=== PATIENT | male | born 1980 ===

== ENCOUNTER 2018-12-07 09:51 | Inpatient (IN) | payer OTHER ==
[~2018-12-07] VITALS: Ht 172.7 cm; Wt 99.0 kg
[2018-12-07] MEDS ORDERED: SERT50TA12 PO (10:26)
[2018-12-07 10:58] LABS: BASOPHILS % (AUTO) 0.4 % (0.0-2.0); EOSINOPHILS % (AUTO) 0.2 % (1.0-6.0); HEMOGLOBIN 16.9 g/dL (13.5-17.5); LYMPHOCYTES # (AUTO) 0.6 K/uL (1.0-4.8); LYMPHOCYTES % (AUTO) 5.7 % (22.0-44.0); MEAN CORPUSCULAR HEMOGLOBIN 33.6 pg (26.0-34.0); MEAN CORPUSCULAR HGB CONC 34.4 G/dL (31.0-37.0); MEAN CORPUSCULAR VOLUME 98 fL (80-100); MONOCYTES # (AUTO) 0.6 K/uL (0.1-1.0); MONOCYTES % (AUTO) 6.1 % (2.0-9.0); NEUTROPHILS # (AUTO) 9.2 K/uL (1.8-7.7); PLATELET COUNT (AUTO) 114 K/uL (150-450); RED BLOOD CELL COUNT(AUTO) 5.02 MIL/uL (4.50-5.90); RED CELL DISTRIBUTION WIDTH 14.1 % (11.5-14.5)
[2018-12-07 11:00] LABS: NEUTROPHILS % (AUTO) 87.6 % (40.0-70.0)
[2018-12-07] MEDS ORDERED: SODIUM CHLORIDE 0.9% 1,000 ML IV ONE (11:00)
[2018-12-07] MEDS ORDERED: LORazepam 2 MG/ML VIAL IVP ONE (11:00)
[2018-12-07] MEDS ORDERED: MAGNESIUM SULFATE 2 GM, MVI, ADULT NO.1 WITH VIT K 10 ML, THIAMINE HCL 100 MG, FOLIC AC... IV ONE ×5 (11:00)
[2018-12-07 11:05] LABS: ANION GAP 13 mmol/L (8-16); CALCIUM, TOTAL 9.3 mg/dL (8.8-10.5); CARBON DIOXIDE 21 mmol/L (22-29); CHLORIDE 93 mmol/L (98-107); CREATININE 0.67 mg/dL (0.60-1.30); GLOMERULAR FILTR. RATE CALC > 60 mL/min (>60); GLUCOSE,RANDOM 108 mg/dL (70-110); SODIUM SERUM 127 mmol/L (136-145); UREA NITROGEN, BLOOD 5 mg/dL (7-18)
[2018-12-07 11:11] LABS: ALANINE AMINOTRANSFERASE 93 U/L (12-78); ALBUMIN 4.4 g/dL (3.4-5.0); ALKALINE PHOSPHATASE 151 U/L (46-116); ASPARTATE AMINOTRANSFERASE 174 U/L (15-37); BILIRUBIN,TOTAL 1.5 mg/dL (0.1-1.0); LIPASE 322 U/L (73-393); TOTAL PROTEIN, SERUM 8.9 g/dL (6.4-8.2)
[2018-12-07 12:49] LABS: AMPHET/METH SCREEN,URINE NEGATIVE (NEGATIVE); BARBITURATE SCREEN, URINE NEGATIVE (NEGATIVE); BENZODIAZEPINES SCREEN,URINE NEGATIVE (NEGATIVE); CANNABINOID SCREEN,URINE POSITIVE (NEGATIVE); COCAINE SCREEN,URINE NEGATIVE (NEGATIVE); METHADONE SCREEN, URINE NEGATIVE (NEGATIVE); OPIATE SCREEN,URINE NEGATIVE (NEGATIVE)
[2018-12-07 12:50] LABS: PHENCYCLIDINE SCREEN,URINE NEGATIVE (NEGATIVE)
[2018-12-07] MEDS ORDERED: BISACODYL 10 MG RECTAL RECTAL SUPPOSITORY PR PRN (13:00)
[2018-12-07] MEDS ORDERED: LORazepam 2 MG/ML VIAL IVP PRN (13:00)
[2018-12-07] MEDS ORDERED: ALBUTEROL SULFATE 2.5 MG/0.5 ML NEB SOLUTION NEB PRN (13:00)
[2018-12-07] MEDS ORDERED: MORPHINE SULFATE 2 MG/ML SYRINGE IVP PRN (13:00)
[2018-12-07] MEDS ORDERED: HYDROCODONE/ACETAMINOPHEN 5-325 MG TABLET PO PRN (13:00)
[2018-12-07] MEDS ORDERED: ONDANSETRON HCL 4 MG/2 ML VIAL IVP PRN (13:00)
[2018-12-07] MEDS ORDERED: ACETAMINOPHEN 325 MG TABLET PO PRN (13:00)
[2018-12-07] MEDS ORDERED: MAGNESIUM HYDROXIDE SUSPENSION 30 ML UDCUP PO PRN (13:00)
[2018-12-07] MEDS ORDERED: IPRATROPIUM BROMIDE 0.5 MG/2.5 ML NEB SOLUTION NEB PRN (13:00)
[2018-12-07] MEDS ORDERED: ZOLPIDEM TARTRATE 5 MG TABLET PO PRN (13:00)
[2018-12-07 16:34] VITALS: BP 138/97
[2018-12-07] MEDS: HEPARIN SODIUM,PORCINE 5,000 UNITS/ML VIAL SQ SCH (17:17)
[2018-12-07 20:30] VITALS: BP 143/94
[2018-12-07] MEDS: DOCUSATE SODIUM 100 MG CAPSULE PO SCH (21:03)
[2018-12-07] MEDS: ChlordiazePOXIDE HCL 25 MG CAPSULE PO SCH (21:03)
[2018-12-07] MEDS: SERTRALINE HCL 50 MG TABLET PO SCH (21:05)
[2018-12-07] MEDS: RisperiDONE 0.5 MG TABLET PO SCH (21:05)
[2018-12-07 23:40] VITALS: BP 132/90
[2018-12-08] VITALS (13 sets, daily range): BP systolic 118–136; BP diastolic 74–93
[2018-12-08] MEDS: HEPARIN SODIUM,PORCINE 5,000 UNITS/ML VIAL SQ SCH ×4 (00:13→23:49)
[2018-12-08] MEDS: ChlordiazePOXIDE HCL 25 MG CAPSULE PO SCH ×4 (00:13→18:31)
[2018-12-08] MEDS: FOLIC ACID 1 MG TABLET PO SCH (08:35)
[2018-12-08] MEDS: MULTIVITAMINS, THERAPEUTIC TABLET PO SCH (08:35)
[2018-12-08] MEDS: RisperiDONE 0.5 MG TABLET PO SCH ×2 (08:35→19:40)
[2018-12-08] MEDS: DOCUSATE SODIUM 100 MG CAPSULE PO SCH ×2 (08:36→19:39)
[2018-12-08] MEDS: THIAMINE HCL 100 MG TABLET PO SCH (08:36)
[2018-12-08 16:08] LABS: BASOPHILS % (AUTO) 1.2 % (0.0-2.0); EOSINOPHILS % (AUTO) 3.7 % (1.0-6.0); HEMATOCRIT 50.2 % (41-53); HEMOGLOBIN 16.6 g/dL (13.5-17.5); LYMPHOCYTES # (AUTO) 0.6 K/uL (1.0-4.8); LYMPHOCYTES % (AUTO) 10.1 % (22.0-44.0); MEAN CORPUSCULAR HEMOGLOBIN 33.2 pg (26.0-34.0); MEAN CORPUSCULAR HGB CONC 33.1 G/dL (31.0-37.0); MEAN CORPUSCULAR VOLUME 100 fL (80-100); MONOCYTES # (AUTO) 0.4 K/uL (0.1-1.0); MONOCYTES % (AUTO) 7.2 % (2.0-9.0); NEUTROPHILS # (AUTO) 4.8 K/uL (1.8-7.7); NEUTROPHILS % (AUTO) 77.8 % (40.0-70.0); RED BLOOD CELL COUNT(AUTO) 5.01 MIL/uL (4.50-5.90); RED CELL DISTRIBUTION WIDTH 14.3 % (11.5-14.5)
[2018-12-08 16:21] LABS: ANION GAP 11 mmol/L (8-16); CALCIUM, TOTAL 9.6 mg/dL (8.8-10.5); CARBON DIOXIDE 23 mmol/L (22-29); CHLORIDE 99 mmol/L (98-107); CREATININE 0.91 mg/dL (0.60-1.30); GLOMERULAR FILTR. RATE CALC > 60 mL/min (>60); GLUCOSE,RANDOM 97 mg/dL (70-110); POTASSIUM 4.2 mmol/L (3.5-5.1); SODIUM SERUM 133 mmol/L (136-145); UREA NITROGEN, BLOOD 9 mg/dL (7-18)
[2018-12-08 16:31] LABS: ALANINE AMINOTRANSFERASE 69 U/L (12-78); ALBUMIN 3.9 g/dL (3.4-5.0); ALKALINE PHOSPHATASE 147 U/L (46-116); ASPARTATE AMINOTRANSFERASE 106 U/L (15-37); BILIRUBIN,TOTAL 1.4 mg/dL (0.1-1.0); TOTAL PROTEIN, SERUM 8.4 g/dL (6.4-8.2)
[2018-12-08] MEDS: SODIUM CHLORIDE 0.9% 1,000 ML IV SCH (16:48)
[2018-12-08 17:19] LABS: PLATELET COUNT (AUTO) 79 K/uL (150-450)
[2018-12-08] MEDS: SERTRALINE HCL 50 MG TABLET PO SCH (19:40)
[2018-12-09] MEDS ORDERED: ChlordiazePOXIDE HCL 10 MG CAPSULE PO SCH
[2018-12-09 04:00] VITALS: BP 108/65
[2018-12-09] MEDS: SODIUM CHLORIDE 0.9% 1,000 ML IV SCH ×2 (06:18→21:43)
[2018-12-09] MEDS ORDERED: ChlordiazePOXIDE HCL 25 MG CAPSULE PO PRN (07:00)
[2018-12-09 07:29] VITALS: BP 108/68
[2018-12-09] MEDS: MULTIVITAMINS, THERAPEUTIC TABLET PO SCH (08:57)
[2018-12-09] MEDS: DOCUSATE SODIUM 100 MG CAPSULE PO SCH ×2 (08:57→21:42)
[2018-12-09] MEDS: HEPARIN SODIUM,PORCINE 5,000 UNITS/ML VIAL SQ SCH ×2 (08:57→15:53)
[2018-12-09] MEDS: THIAMINE HCL 100 MG TABLET PO SCH (08:58)
[2018-12-09] MEDS: FOLIC ACID 1 MG TABLET PO SCH (08:58)
[2018-12-09] MEDS: RisperiDONE 0.5 MG TABLET PO SCH (08:58)
[2018-12-09] MEDS: ChlordiazePOXIDE HCL 25 MG CAPSULE PO SCH ×4 (09:40→21:42)
[2018-12-09 11:21] VITALS: BP 98/79
[2018-12-09 15:19] VITALS: BP 102/71
[2018-12-09 19:49] VITALS: BP 120/70
[2018-12-09] MEDS: RisperiDONE 1 MG TABLET PO SCH (21:42)
[2018-12-09 23:32] VITALS: BP 103/56
[2018-12-10] MEDS: HEPARIN SODIUM,PORCINE 5,000 UNITS/ML VIAL SQ SCH ×4 (00:29→23:35)
[2018-12-10 03:59] VITALS: BP 124/77
[2018-12-10 07:28] VITALS: BP 106/76
[2018-12-10] MEDS: SERTRALINE HCL 100 MG TABLET PO SCH (09:19)
[2018-12-10] MEDS: ChlordiazePOXIDE HCL 25 MG CAPSULE PO SCH ×2 (09:19→13:24)
[2018-12-10] MEDS: MULTIVITAMINS, THERAPEUTIC TABLET PO SCH (09:20)
[2018-12-10] MEDS: THIAMINE HCL 100 MG TABLET PO SCH (09:20)
[2018-12-10] MEDS: FOLIC ACID 1 MG TABLET PO SCH (09:20)
[2018-12-10] MEDS: DOCUSATE SODIUM 100 MG CAPSULE PO SCH ×2 (09:20→21:14)
[2018-12-10 11:13] VITALS: BP 106/76
[2018-12-10 11:37] VITALS: BP 110/71
[2018-12-10] MEDS: SODIUM CHLORIDE 0.9% 1,000 ML IV SCH (13:24)
[2018-12-10 15:27] VITALS: BP 148/75
[2018-12-10] MEDS: ChlordiazePOXIDE HCL 10 MG CAPSULE PO SCH ×2 (16:21→21:14)
[2018-12-10 19:46] VITALS: BP 126/75
[2018-12-10] MEDS: RisperiDONE 1 MG TABLET PO SCH (21:14)
[2018-12-11 00:58] VITALS: BP 108/56
[2018-12-11 05:33] VITALS: BP 107/62
[2018-12-11 06:29] LABS: BASOPHILS % (AUTO) 0.7 % (0.0-2.0); EOSINOPHILS % (AUTO) 3.9 % (1.0-6.0); HEMATOCRIT 46.4 % (41-53); HEMOGLOBIN 15.8 g/dL (13.5-17.5); LYMPHOCYTES % (AUTO) 13.8 % (22.0-44.0); MEAN CORPUSCULAR HEMOGLOBIN 34.1 pg (26.0-34.0); MEAN CORPUSCULAR VOLUME 100 fL (80-100); MONOCYTES # (AUTO) 0.7 K/uL (0.1-1.0); MONOCYTES % (AUTO) 9.1 % (2.0-9.0); NEUTROPHILS # (AUTO) 5.4 K/uL (1.8-7.7); NEUTROPHILS % (AUTO) 72.5 % (40.0-70.0); PLATELET COUNT (AUTO) 90 K/uL (150-450); RED BLOOD CELL COUNT(AUTO) 4.63 MIL/uL (4.50-5.90); RED CELL DISTRIBUTION WIDTH 14.2 % (11.5-14.5)
[2018-12-11] MEDS ORDERED: ChlordiazePOXIDE HCL 10 MG CAPSULE PO PRN (07:00)
[2018-12-11 07:23] LABS: ALANINE AMINOTRANSFERASE 57 U/L (12-78); ALBUMIN 3.7 g/dL (3.4-5.0); ALKALINE PHOSPHATASE 161 U/L (46-116); ANION GAP 8 mmol/L (8-16); ASPARTATE AMINOTRANSFERASE 81 U/L (15-37); BILIRUBIN,TOTAL 1.2 mg/dL (0.1-1.0); CALCIUM, TOTAL 9.7 mg/dL (8.8-10.5); CARBON DIOXIDE 27 mmol/L (22-29); CHLORIDE 100 mmol/L (98-107); CREATININE 1.03 mg/dL (0.60-1.30); GLOMERULAR FILTR. RATE CALC > 60 mL/min (>60); GLUCOSE,RANDOM 110 mg/dL (70-110); POTASSIUM 3.7 mmol/L (3.5-5.1); SODIUM SERUM 135 mmol/L (136-145); TOTAL PROTEIN, SERUM 7.9 g/dL (6.4-8.2); UREA NITROGEN, BLOOD 10 mg/dL (7-18)
[2018-12-11 07:25] VITALS: BP 119/86
[2018-12-11] MEDS: HEPARIN SODIUM,PORCINE 5,000 UNITS/ML VIAL SQ SCH (08:06)
[2018-12-11] MEDS: FOLIC ACID 1 MG TABLET PO SCH (08:07)
[2018-12-11] MEDS: MULTIVITAMINS, THERAPEUTIC TABLET PO SCH (08:07)
[2018-12-11] MEDS: ChlordiazePOXIDE HCL 10 MG CAPSULE PO SCH ×2 (08:07→13:21)
[2018-12-11] MEDS: DOCUSATE SODIUM 100 MG CAPSULE PO SCH (08:07)
[2018-12-11] MEDS: THIAMINE HCL 100 MG TABLET PO SCH (08:07)
[2018-12-11] MEDS: SERTRALINE HCL 100 MG TABLET PO SCH (08:07)
[2018-12-11] MEDS ORDERED: ChlordiazePOXIDE HCL 10 MG CAPSULE PO SCH (09:00)
[2018-12-11] MEDS ORDERED: MULT-1239 PO (10:43)
[2018-12-11] MEDS ORDERED: FOLI1 PO (10:43)
[2018-12-11] MEDS ORDERED: RISP1 PO (10:44)
[2018-12-11] MEDS ORDERED: THIA100T67 PO (10:44)
[2018-12-11 16:21] VITALS: BP 121/88
[2018-12-12] MEDS ORDERED: ChlordiazePOXIDE HCL 10 MG CAPSULE PO PRN (07:00)
== END 2018-12-11 16:15 | DRG 897 ==
LOC: EMS 09:56 → 6S 12:57
PROVIDERS: ADMIT Hospitalist; ATTEND Hospitalist
DX: F10.239 Alcohol dependence with withdrawal, unspecified (principal); E87.1 Hypo-osmolality and hyponatremia; I10 Essential (primary) hypertension; F17.210 Nicotine dependence, cigarettes, uncomplicated; K70.30 Alcoholic cirrhosis of liver without ascites; F25.1 Schizoaffective disorder, depressive type; F12.10 Cannabis abuse, uncomplicated; Z59.0 Homelessness
CPT/HCPCS: 80074; 93005; 96365; G0480; J1644; J2060; J3411; J3475; J3490; J7030